=== PATIENT | female | born 1985 | race Caucasian/White ===

== ENCOUNTER → 2021-05-23 | Outpatient (CLI) | payer MEDICAID ==
[2021-05-23] MEDS: IOHEXOL 240 MG/ML 50ML VIAL. PO ONE (09:55)
[2021-05-23] MEDS: IOHEXOL 300 MG/ML 100ML VIAL. IV ONE (09:55)
--- NOTE | 2021-05-23 10:17 | KCIC ---
CT abdomen pelvis with contrast dated 05/23/2021. COMPARISON: None. Clinical data indication: Right lower quadrant pain. TECHNIQUE: Contiguous axial imaging the M pelvis performed after the administration of 100 cc Isovue-300. One or more of the following individualized dose reduction techniques were utilized for this examinat ion: 1. Automated exposure control 2. Adjustment of the mA and/or kV according to patient size 3. Use of iterative reconstruction technique. FINDINGS: Limited images of lung bases are clear. Heart size within normal limits. No pleural or pericardial ef fusion. Liver is of mild low density suggesting fatty infiltration. No apparent mass. No intrahepatic or extr a hepatic biliary ductal dilatation. Gallbladder unremarkable. Spleen is normal in size. Pancreas, adrenal glands and kidneys are unremarkable. No hydronephrosis. Partially opacified GI tract normal in caliber and contour. No focal bowel wall thickening. No inflam matory stranding in the mesentery. The appendix is normal in caliber. No ascites or lymphadenopathy. Images of the pelvis show nondistended urinary bladder. Uterus and adnexa are unremarkable. No signif icant free fluid or pelvic lymphadenopathy. Bone window show no acute finding.. IMPRESSION: 1. No acute abnormality of abdomen or pelvis. Normal appendix. Electronically signed by: Nathan Meredith MD (05/23/2021 10:15 AM) [facility]
== END ==
LOC: KCIC CT 08:22
PROVIDERS: ATTEND Family Medicine
DX: R10.30 Lower abdominal pain, unspecified (principal)
CPT/HCPCS: 74177; Q9966; Q9967